=== PATIENT | female | born 1960 | race Caucasian/White ===

== ENCOUNTER 2020-01-31 05:10 | Day surgery (SDC) | payer OTHER ==
[~2020-01-31 05:10] MED LIST: ALEGRA; ASA81 MG; CRESTOR5 MG; GABAPENTIN100 M2 PO; HUMALOG100 U/M1 SQ; LOSARTAN POTAS100 MG PO; Levemir PO; PLAVIX75 MG PO; RELION HUM100 UNIT/1 SQ; SYNTHROID175 MCG PO; TRIAMTERENE HCT PO; [UNRECOGNIZED DRUG - OTHER]
== END 2020-01-31 13:15 | disposition home or self-care (01) ==
LOC: CIR.AMB 05:10 → ADM 08:45 → CIR.AMB 08:45
DX: H72.01 Central perforation of tympanic membrane, right ear (principal)